=== PATIENT | male | born 1985 | race Two or more races ===

== ENCOUNTER 2021-10-09 20:31 | Emergency (ER) | payer SELFPAY ==
[~2021-10-09] VITALS: Ht 170.2 cm; Wt 65.8 kg
--- NOTE | 2021-10-09 20:42 | NUR ---
BIBLAPD/RA39 FROM THE STREETS FOR CHESTPAIN NO TRUAMA NOTED. OTB. PATIENT ALERT AND ORIENTED X3. AMBULATORY BUT BROUGHT IN BY STRETCHER. PATIENT IS REFUSING TO ANSWER ALL QUESTIONS. IN BED 15 WITH [employer] AT BEDSIDE
--- NOTE | 2021-10-09 21:14 | NUR ---
Patient discharged to retirement in stable condition. Written and verbal after care instructions given. Patient verbalizes understanding of instruction.
[2021-10-09 21:15] VITALS: BP 145/70
== END 2021-10-09 21:15 ==
LOC: ER 20:37
DX: R07.89 Other chest pain (principal)